=== PATIENT | female | born 1995 | race Two or more races ===

== ENCOUNTER 2017-04-24 01:40 | Outpatient (CLI) | payer OTHER ==
[~2017-04-24 01:40] MED LIST: PRENA1 TRUE CO1 EACH
[2017-04-24] MEDS ORDERED: FOLIC ACID1 MG PO (01:57)
== END 2017-04-24 13:08 | disposition home or self-care (01) ==
LOC: OBS/DEL 01:40
DX: O60.02 Preterm labor without delivery, second trimester (principal); O26.892 Other specified pregnancy related conditions, second trimester; M79.603 Pain in arm, unspecified; Z34.82 Encounter for supervision of other normal pregnancy, second trimester

== ENCOUNTER 2017-06-11 21:38 | Inpatient (IN) | payer OTHER ==
[~2017-06-11] VITALS: Ht 154.9 cm; Wt 63.5 kg
[~2017-06-11 21:38] MED LIST changes: +FOLIC ACID1 MG PO
[2017-06-15] MEDS ORDERED: NIFEDIPINE ER60 MG PO (13:41)
== END 2017-06-15 15:40 | DRG 778 ==
LOC: LDR 21:38 → OB/GYN 06-13 11:25
PROC: 4A1HXCZ Monitoring of Products of Conception, Cardiac Rate, External Approach (ICD-10-PCS; principal; 2017-06-11)
DX: O60.03 Preterm labor without delivery, third trimester (principal); Z3A.32 32 weeks gestation of pregnancy

== ENCOUNTER 2017-07-06 01:35 | Inpatient (IN) | payer OTHER ==
[~2017-07-06] VITALS: Ht 154.9 cm; Wt 142.0 kg
[~2017-07-06 01:35] MED LIST changes: +NIFEDIPINE ER60 MG PO
== END 2017-07-06 10:56 | disposition home or self-care (01) | DRG 780 ==
LOC: LDR 01:35
PROC: BY4FZZZ Ultrasonography of Third Trimester, Single Fetus (ICD-10-PCS; principal; 2017-07-06)
PROC: 4A1HXCZ Monitoring of Products of Conception, Cardiac Rate, External Approach (ICD-10-PCS; 2017-07-06)
DX: O47.03 False labor before 37 completed weeks of gestation, third trimester (principal); O98.813 Other maternal infectious and parasitic diseases complicating pregnancy, third trimester

== ENCOUNTER 2017-07-27 00:55 | Inpatient (IN) | payer OTHER ==
[~2017-07-27] VITALS: Ht 154.9 cm; Wt 68.9 kg
[2017-07-27] MEDS ORDERED: MAXFE CAPLET1 EACH PO (01:01)
== END 2017-07-29 12:25 | disposition home or self-care (01) | DRG 775 ==
LOC: LDR 00:55 → OB/GYN 12:33
PROC: 10E0XZZ Delivery of Products of Conception, External Approach (ICD-10-PCS; principal; 2017-07-27)
PROC: 0UQMXZZ Repair Vulva, External Approach (ICD-10-PCS; 2017-07-27)
PROC: 10907ZC Drainage of Amniotic Fluid, Therapeutic from Products of Conception, Via Natural or Artificial Opening (ICD-10-PCS; 2017-07-27)
PROC: 3E033VJ Introduction of Other Hormone into Peripheral Vein, Percutaneous Approach (ICD-10-PCS; 2017-07-27)
PROC: 4A1HXCZ Monitoring of Products of Conception, Cardiac Rate, External Approach (ICD-10-PCS; 2017-07-27)
DX: O70.0 First degree perineal laceration during delivery (principal); O69.81X0 Labor and delivery complicated by cord around neck, without compression, not applicable or unspecified; O99.824 Streptococcus B carrier state complicating childbirth; Z3A.38 38 weeks gestation of pregnancy; Z37.0 Single live birth

== ENCOUNTER 2018-06-05 19:40 | Emergency (ER) | payer OTHER ==
[~2018-06-05] VITALS: Ht 154.9 cm; Wt 53.5 kg
[~2018-06-05 19:40] MED LIST changes: +MAXFE CAPLET1 EACH PO
== END 2018-06-05 22:36 | disposition home or self-care (01) ==
LOC: ER 19:40
DX: O23.42 Unspecified infection of urinary tract in pregnancy, second trimester (principal); Z34.82 Encounter for supervision of other normal pregnancy, second trimester

== ENCOUNTER 2018-08-29 04:06 | Outpatient (CLI) | payer OTHER | END 2018-08-29 22:40 | disposition home or self-care (01) | LOC: OBS/DEL 04:06 | DX: O60.03 Preterm labor without delivery, third trimester (principal); Z34.83 Encounter for supervision of other normal pregnancy, third trimester ==

== ENCOUNTER 2018-10-26 03:04 | Outpatient (CLI) | payer OTHER ==
[~2018-10-26] VITALS: Ht 154.9 cm; Wt 67.6 kg
== END 2018-10-27 12:18 | disposition home or self-care (01) ==
LOC: OBS/DEL 03:04 → LDR 07:48 → OBS/DEL 07:48 → LDR 10-27 13:09
DX: O60.03 Preterm labor without delivery, third trimester (principal)

== ENCOUNTER 2018-11-03 06:33 | Inpatient (IN) | payer OTHER ==
[~2018-11-03] VITALS: Ht 154.9 cm; Wt 64.4 kg
== END 2018-11-05 18:11 | disposition home or self-care (01) | DRG 807 ==
LOC: LDR 06:33 → OB/GYN 06:33
PROVIDERS: ADMIT Obstetrics & Gynecology
PROC: 10E0XZZ Delivery of Products of Conception, External Approach (ICD-10-PCS; principal; 2018-11-03)
PROC: 4A1HXCZ Monitoring of Products of Conception, Cardiac Rate, External Approach (ICD-10-PCS; 2018-11-03)
PROC: 4A033R1 Measurement of Arterial Saturation, Peripheral, Percutaneous Approach (ICD-10-PCS; 2018-11-03)
DX: O80 Encounter for full-term uncomplicated delivery (principal); Z37.0 Single live birth; Z22.330 Carrier of Group B streptococcus; Z3A.38 38 weeks gestation of pregnancy

== ENCOUNTER 2020-04-07 19:50 | Emergency (ER) | payer OTHER ==
[~2020-04-07] VITALS: Ht 154.9 cm; Wt 59.9 kg
== END 2020-04-07 22:40 | disposition home or self-care (01) ==
LOC: ER 19:50
DX: O23.32 Infections of other parts of urinary tract in pregnancy, second trimester (principal); Z3A.17 17 weeks gestation of pregnancy

== ENCOUNTER 2020-08-17 23:37 | Outpatient (CLI) | payer OTHER | END 2020-08-18 09:10 | disposition home or self-care (01) | LOC: OBS/DEL 23:37 | PROVIDERS: ATTEND Obstetrics & Gynecology | DX: O23.43 Unspecified infection of urinary tract in pregnancy, third trimester (principal); Z3A.37 37 weeks gestation of pregnancy ==

== ENCOUNTER 2020-08-26 21:24 | Outpatient (CLI) | payer OTHER | END 2020-08-27 11:09 | disposition home or self-care (01) | LOC: OBS/DEL 21:24 | PROVIDERS: ATTEND Obstetrics & Gynecology | DX: O23.43 Unspecified infection of urinary tract in pregnancy, third trimester (principal); Z3A.38 38 weeks gestation of pregnancy ==

== ENCOUNTER 2020-08-29 11:03 | Inpatient (IN) | payer OTHER ==
[~2020-08-29] VITALS: Ht 154.9 cm; Wt 75.3 kg
== END 2020-08-31 18:36 | disposition home or self-care (01) | DRG 807 ==
LOC: LDR 11:03 → OB/GYN 11:03
PROVIDERS: ADMIT Obstetrics & Gynecology; ATTEND Obstetrics & Gynecology
PROC: 10E0XZZ Delivery of Products of Conception, External Approach (ICD-10-PCS; principal; 2020-08-29)
PROC: 4A1HXFZ Monitoring of Products of Conception, Cardiac Rhythm, External Approach (ICD-10-PCS; 2020-08-29)
DX: O80 Encounter for full-term uncomplicated delivery (principal); Z37.0 Single live birth; Z3A.38 38 weeks gestation of pregnancy; Z20.822 Contact with and (suspected) exposure to COVID-19

== ENCOUNTER 2023-03-24 16:19 | Outpatient (CLI) | payer OTHER ==
[2023-03-24] MEDS ORDERED: BETAMETHASONE ACETATE,SOD PHOS 30 MG/5 ML ML IM STA (16:39)
[2023-03-24] MEDS ORDERED: NIFEDIPINE 20 MG CAPSULE PO STA (16:41)
[2023-03-24] MEDS ORDERED: NIFEDIPINE 10 MG CAPSULE PO PRN (16:45)
[2023-03-24] MEDS ORDERED: RINGERS SOLUTION,LACTATED 1,000 ML IV SCH (16:45)
[2023-03-24 17:14] LABS: HEMATOCRIT 31.5 % (36.0-45.00); HEMOGLOBIN 10.7 g/dL (12.0-15.00); MEAN CELL VOLUME 86.4 fL (80.00-100.00); MEAN CORPUSCULAR HEMOGLOBIN 29.2 pg (27.00-32.0); MEAN CORPUSCULAR HGB CONC 33.9 g/dl (32.0-36.0); PLATELET COUNT 178 K/uL (150-450); RED BLOOD COUNT 3.65 M/uL (4.00-6.00); RED CELL DISTRIBUTION WIDTH 15.3 % (11.5-14.5)
[2023-03-24 17:16] LABS: URINE APPEARANCE Clear; URINE BILIRRUBIN Negative (NEGATIVE); URINE BLOOD Negative; URINE COLOR Yellow; URINE GLUCOSE Negative (NEGATIVE); URINE LEUKOCYTE Small; URINE NITRATE Negative; URINE PROTEIN Negative (NEGATIVE)
[2023-03-24 17:19] LABS: URINE BACTERIA 801.2 uL (0.0-1933); URINE EPITHELIAL CELLS 16.8 uL (0.0-38.8); URINE WBC 45.7 uL (0.0-23.2)
[2023-03-24 17:20] LABS: URINE RBC 0.4 uL (0.0-20.8)
[2023-03-24] MEDS ORDERED: CEFAZOLIN SODIUM 1,000 MG VIAL IV SCH (18:00)
[2023-03-25] MEDS ORDERED: BETAMETHASONE ACETATE,SOD PHOS 30 MG/5 ML ML IM ONE (16:45)
[2023-03-25] MEDS ORDERED: BETAMETHASONE ACETATE,SOD PHOS 30 MG/5 ML ML ONE (17:20)
== END 2023-03-25 18:45 | disposition home or self-care (01) ==
LOC: OBS/DEL 16:19
PROVIDERS: ATTEND Obstetrics & Gynecology
DX: O26.893 Other specified pregnancy related conditions, third trimester (principal); Z3A.36 36 weeks gestation of pregnancy

== ENCOUNTER 2023-04-02 23:48 | Inpatient (IN) | payer OTHER ==
[~2023-04-02] VITALS: Ht 154.9 cm; Wt 68.0 kg
[~2023-04-02 23:48] MED LIST changes: +AMPICILLIN SODIUM 2,000 MG VIAL IV ONE
[2023-04-03 00:37] LABS: HEMATOCRIT 34.4 % (36.0-45.00); HEMOGLOBIN 11.5 g/dL (12.0-15.00); MEAN CELL VOLUME 88.5 fL (80.00-100.00); MEAN CORPUSCULAR HEMOGLOBIN 29.7 pg (27.00-32.0); MEAN CORPUSCULAR HGB CONC 33.5 g/dl (32.0-36.0); PLATELET COUNT 243 K/uL (150-450); RED BLOOD COUNT 3.89 M/uL (4.00-6.00); RED CELL DISTRIBUTION WIDTH 15.8 % (11.5-14.5)
[2023-04-03 00:38] LABS: URINE APPEARANCE Cloudy; URINE BILIRRUBIN Negative (NEGATIVE); URINE BLOOD Negative; URINE COLOR Yellow; URINE GLUCOSE Negative (NEGATIVE); URINE LEUKOCYTE Trace; URINE NITRATE Negative; URINE PROTEIN Negative (NEGATIVE); URINE UROBILINOGEN 0.2 E.U./dl
[2023-04-03 00:41] LABS: URINE BACTERIA 15.1 uL (0.0-1933); URINE WBC 16.9 uL (0.0-23.2)
[2023-04-03 01:03] LABS: INR 0.99; PARTIAL THROMBOPLASTIN TIME 27.6 SECONDS (22.0-34.0); PROTHROMBIN TIME 10.4 SECONDS (9.0-11.5)
[2023-04-03] MEDS ORDERED: AMPICILLIN SODIUM 1,000 MG VIAL IV SCH (04:00)
[2023-04-03] MEDS ORDERED: RINGERS SOLUTION,LACTATED 1,000 ML IV SCH (15:15)
[2023-04-03] MEDS ORDERED: MORPHINE SULFATE 4 MG/ML CARTRIDGE IV STA (15:16)
[2023-04-03] MEDS ORDERED: OXYTOCIN 500 ML IV SCH (15:30)
[2023-04-03] MEDS ORDERED: CEFAZOLIN SODIUM 1,000 MG VIAL ONE (15:48)
[2023-04-03] MEDS ORDERED: IBUprofen 400 MG TABLET PO PRN (17:30)
[2023-04-03] MEDS ORDERED: OXYTOCIN 10 UNITS/ML VIAL IM STA (17:30)
[2023-04-03] MEDS ORDERED: ERYTHROMYCIN BASE 1 GM TUBE OP SCH (17:30)
[2023-04-03] MEDS ORDERED: CHLORHEXIDINE GLUCONATE 120 ML BOTTLE TOP SCH (17:30)
[2023-04-03] MEDS ORDERED: LIDOCAINE HCL 1% 200MG/20ML VIAL IJ SCH (17:30)
[2023-04-03 18:03] LABS: ABG PH 7.436 (7.35-7.45); ABG PO2 35.9 mmHg (80-100); ABG pCO2 31.9 mmHg (35-45); BASE EXCESS -2.1 mmol/l; SaO2 70.7 %; o2 21 %
[2023-04-03] MEDS ORDERED: CEFAZOLIN SODIUM 1,000 MG VIAL IV ONE (18:45)
[2023-04-03 23:13] LABS: HEMATOCRIT 35.4 % (36.0-45.00); HEMOGLOBIN 11.5 g/dL (12.0-15.00); MEAN CELL VOLUME 86.3 fL (80.00-100.00); MEAN CORPUSCULAR HEMOGLOBIN 28.1 pg (27.00-32.0); MEAN CORPUSCULAR HGB CONC 32.5 g/dl (32.0-36.0); PLATELET COUNT 244 K/uL (150-450); RED CELL DISTRIBUTION WIDTH 15.7 % (11.5-14.5)
[2023-04-04] MEDS ORDERED: KETOROLAC TROMETHAMINE 30 MG VIAL IM STA (11:27)
== END 2023-04-05 13:12 | disposition home or self-care (01) | DRG 807 ==
LOC: LDR 23:48 → OB/GYN 04-03 18:02
PROVIDERS: Obstetrics & Gynecology; ADMIT Obstetrics & Gynecology; ATTEND Obstetrics & Gynecology
PROC: 10E0XZZ Delivery of Products of Conception, External Approach (ICD-10-PCS; principal; 2023-04-02)
PROC: 4A1HXCZ Monitoring of Products of Conception, Cardiac Rate, External Approach (ICD-10-PCS; 2023-04-02)
DX: O80 Encounter for full-term uncomplicated delivery (principal); Z37.0 Single live birth; Z3A.37 37 weeks gestation of pregnancy; Z20.822 Contact with and (suspected) exposure to COVID-19

== ENCOUNTER 2024-06-05 07:29 | Inpatient (IN) | payer OTHER ==
[~2024-06-05] VITALS: Ht 154.9 cm; Wt 75.3 kg
[2024-06-05 07:05] VITALS: BP 115/73
[~2024-06-05 07:29] MED LIST changes: -AMPICILLIN SODIUM 2,000 MG VIAL IV ONE; +AMPICILLIN SODIUM 2,000 MG VIAL ONE
[2024-06-05] MEDS ORDERED: RINGERS SOLUTION,LACTATED 1,000 ML IV SCH (07:45)
[2024-06-05] MEDS ORDERED: OXYTOCIN 20 UNITS/1000ML RL PIGGYBAG IV ONE ×2 (07:47→09:45)
[2024-06-05] MEDS ORDERED: ERYTHROMYCIN BASE OPHT 1GM EACH TUBE OP ONE ×2 (07:47→09:45)
[2024-06-05] MEDS ORDERED: CHLORHEXIDINE GLUCONATE 120 ML BOTTLE TOP ONE ×2 (07:47→09:45)
[2024-06-05] MEDS ORDERED: LIDOCAINE HCL 1% 10ML VIAL ONE (07:48)
[2024-06-05 08:00] LABS: PH,URINE 7.5 (5.0-8.0); URINE APPEARANCE Cloudy; URINE BILIRRUBIN Negative (NEGATIVE); URINE BLOOD Large; URINE COLOR Yellow; URINE GLUCOSE Negative (NEGATIVE); URINE KETONE Negative (NEGATIVE); URINE LEUKOCYTE Large; URINE NITRATE Negative; URINE PROTEIN 30 (NEGATIVE); URINE UROBILINOGEN 0.2 E.U./dl
[2024-06-05 08:03] LABS: URINE BACTERIA 2817.4 uL (0.0-1933); URINE EPITHELIAL CELLS 89.9 uL (0.0-38.8); URINE RBC 3.9 uL (0.0-20.8); URINE WBC 2940.8 uL (0.0-23.2)
[2024-06-05] MEDS ORDERED: SYNTHROID50 MCG PO (08:07)
[2024-06-05] MEDS ORDERED: PRENATAL TABLE1 EAC1 PO (08:07)
[2024-06-05] MEDS ORDERED: IRON325 MG PO (08:07)
[2024-06-05 08:14] LABS: HEMATOCRIT 33.5 % (36.0-45.00); HEMOGLOBIN 11.1 g/dL (12.0-15.00); MEAN CORPUSCULAR HEMOGLOBIN 28.1 pg (27.00-32.0); MEAN CORPUSCULAR HGB CONC 33.1 g/dl (32.0-36.0); PLATELET COUNT 219 K/uL (150-450); RED BLOOD COUNT 3.94 M/uL (4.00-6.00); RED CELL DISTRIBUTION WIDTH 14.9 % (11.5-14.5)
[2024-06-05] MEDS ORDERED: AMPICILLIN SODIUM 2,000 MG VIAL IV ONE (08:15)
[2024-06-05 08:36] LABS: ALBUMIN 2.8 gm/dL (3.4-5.0); BILIRUBIN TOTAL 0.35 mg/dL (0.3-1.2); CALCIUM 8.6 mg/dL (8.5-10.1); CREATININE SERUM 0.46 mg/dL (0.55-1.02); GFR 161.75; GLOBULINA 3.6 G/DL (2.4-3.5); POTASSIUM 3.61 mEq/L (3.5-5.1); TOTAL PROTEIN 6.4 gm/dL (6.4-8.2)
[2024-06-05 08:42] LABS: PROTHROMBIN TIME 10.9 SECONDS (9.0-11.5)
[2024-06-05 09:18] LABS: URINE CAST 0.58 uL (0.0-1.40)
[2024-06-05 09:30] VITALS: BP 117/64
[2024-06-05 09:45] VITALS: BP 122/68
[2024-06-05] MEDS ORDERED: OxyCODONE HCL 5 MG TABLET (ROXICODONE) PO PRN (09:45)
[2024-06-05] MEDS ORDERED: BENZOCAINE/MENTHOL 90 ML BOTTLE TOP PRN (09:45)
[2024-06-05] MEDS ORDERED: ACETAMINOPHEN 500 MG GEL..CAP PO PRN (09:45)
[2024-06-05 10:00] VITALS: BP 103/60
[2024-06-05] MEDS ORDERED: METHYLERGONOVINE MALEATE 0.2 MG/ML AMPUL ONE (10:46)
[2024-06-05] MEDS ORDERED: METHYLERGONOVINE MALEATE 0.2 MG/ML AMPUL IM ONE (10:46)
[2024-06-05 11:42] VITALS: BP 114/76
[2024-06-05] MEDS ORDERED: AMPICILLIN SODIUM 1,000 MG VIAL IV SCH (12:00)
[2024-06-05] MEDS ORDERED: HYDROCORTISONE 2.5% 30 GM TUBE RECTAL SCH (13:00)
[2024-06-05 16:02] VITALS: BP 107/60
[2024-06-06] VITALS: BP 93/58
[2024-06-06 01:47] LABS: HEMATOCRIT 30.9 % (36.0-45.00); HEMOGLOBIN 10.3 g/dL (12.0-15.00); MEAN CELL VOLUME 84.4 fL (80.00-100.00); MEAN CORPUSCULAR HEMOGLOBIN 28.2 pg (27.00-32.0); MEAN CORPUSCULAR HGB CONC 33.4 g/dl (32.0-36.0); PLATELET COUNT 193 K/uL (150-450); RED BLOOD COUNT 3.66 M/uL (4.00-6.00)
[2024-06-06] MEDS ORDERED: LEVOTHYROXINE SODIUM 50 MCG TABLET PO SCH (06:00)
[2024-06-06] MEDS ORDERED: LEVOTHYROXINE SODIUM 25 MCG TABLET PO SCH (06:00)
[2024-06-06 08:20] VITALS: BP 100/66
[2024-06-06 16:31] VITALS: BP 107/70
[2024-06-07 00:54] VITALS: BP 102/63
[2024-06-07 09:00] VITALS: BP 105/66
== END 2024-06-07 11:50 | disposition home or self-care (01) | DRG 807 ==
LOC: OB/GYN 07:29 → LDR 07:29 → OB/GYN 09:12
PROVIDERS: Specialist; ADMIT Obstetrics & Gynecology; ATTEND Obstetrics & Gynecology
PROC: 10E0XZZ Delivery of Products of Conception, External Approach (ICD-10-PCS; principal; 2024-06-05)
PROC: 4A1HXCZ Monitoring of Products of Conception, Cardiac Rate, External Approach (ICD-10-PCS; 2024-06-05)
DX: O80 Encounter for full-term uncomplicated delivery (principal); Z37.0 Single live birth; Z3A.39 39 weeks gestation of pregnancy